=== PATIENT | female | born 1970 | race American Indian/Alaskan Native ===

== ENCOUNTER 2022-05-11 12:01 | Emergency (ER) | payer SELFPAY ==
--- NOTE | 2022-05-11 14:57 | XRay Report ---
XR shoulder 2+V RT INDICATION / CLINICAL INFORMATION: PAIN. COMPARISON: None available. FINDINGS: BONES/JOINT(S): No acute fracture or subluxation. 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 Mild generalized osteopen ia. No focal bone erosions or focal osteopenia to suggest inflammatory arthropathy. SOFT TISSUES: No significant abnormality. ADDITIONAL FINDINGS: None. Signer Name: Dawson Herrmann MD Signed: 05/11/2022 2:53 PM Workstation Name: [email or web address]
--- NOTE | 2022-05-11 14:58 | XRay Report ---
XR humerus 2+V RT INDICATION / CLINICAL INFORMATION: C/O PAIN S/P FALL. COMPARISON: None available. FINDINGS: BONES/JOINT(S): No acute fracture or subluxation. 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 Mild generalized osteopen ia. No focal bone erosions or focal osteopenia to suggest inflammatory arthropathy. SOFT TISSUES: No significant abnormality. ADDITIONAL FINDINGS: None. Signer Name: Dawson Herrmann MD Signed: 05/11/2022 2:53 PM Workstation Name: [employer]
[2022-05-11] MEDS ORDERED: HYDROcodone/ACETAMINOPHEN 5-325 MG TAB PO ONE (15:07)
[2022-05-11] MEDS ORDERED: IBUPROFEN 800 MG TAB PO ONE (15:07)
--- NOTE | 2022-05-11 15:08 | Emergency Department Report ---
ED Upper Extremity Inj HPI - General Chief Complaint: Extremity Injury, Upper Stated Complaint: RT ARM PAIN Time Seen by Provider: 05/11/22 14:23 Source: patient Mode of arrival: Ambulatory Limitations: No Limitations - History of Present Illness Initial Comments: 51 YO COMES TO ER WITH R SHOULDER PAIN WHICH STARATED 3 W AGO P FALLING FROM LADDER. 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 HAS NOT SEEN HER PCP. RADIAL/ULNAR PULSES INTACT RAPID CAP REFILL ON EXAM BP NOTED TO BE INC NO HX OF HTN PER PT NO CP NO SOB NO HEADACHE NO DIZZINESS PLAYING ON CELL PHONE DURING EXAM NEURO INTACT W/O DEFICIT Complaint: Injury to:: right -: Sudden, week(s) Other Extremity Injury: Shoulder: Right Handedness: right Place: home Improves With: immobilization Worsens With: movement of extremity Context: fall Associated Symptoms: denies other symptoms - Related Data Previous Rx's Medication Instructions Recorded Last Taken Type Cyclobenzaprine [Flexeril] 10 mg PO TID PRN #10 tablet 05/11/22 Unknown Rx Ibuprofen [Motrin] 800 mg PO Q8HR PRN #30 tablet 05/11/22 Unknown Rx Allergies Allergy/AdvReac Type Severity Reaction Status Date / Time No Known Allergies Allergy Unverified 05/11/22 14:16 ED Review of Systems ROS: Stated complaint: RT ARM PAIN Other details as noted in HPI Comment: All other systems reviewed and negative ED Past Medical Hx - Past Medical History Previous Medical History?: No - Surgical History Past Surgical History?: No - Family History Family history: no significant - Social History Smoking Status: Never Smoker Substance Use Type: None - Medications Home Medications: Home Medications Medication Instructions Recorded Confirmed Last Taken Type Cyclobenzaprine [Flexeril] 10 mg PO TID PRN #10 tablet 05/11/22 Unknown Rx Ibuprofen [Motrin] 800 mg PO Q8HR PRN #30 tablet 05/11/22 Unknown Rx ED Physical Exam - General Limitations: No Limitations General appearance: alert, in no apparent distress - Head Head exam: Present: atraumatic, normocephalic - Eye Eye exam: Present: normal appearance - ENT ENT exam: Present: mucous membranes moist - Neck Neck exam: Present: normal inspection - Respiratory Respiratory exam: Present: normal lung sounds bilaterally. Absent: respiratory distress - Cardiovascular Cardiovascular Exam: Present: regular rate, normal rhythm. Absent: systolic murmur, diastolic murmur, rubs, gallop - GI/Abdominal GI/Abdominal exam: Present: soft, normal bowel sounds - Extremities Exam Extremities exam: Present: normal inspection - Back Exam Back exam: Present: normal inspection - Neurological Exam Neurological exam: Present: alert, oriented X3 - Psychiatric Psychiatric exam: Present: normal affect, normal mood - Skin Skin exam: Present: warm, dry, intact, normal color. Absent: rash ED Course Vital Signs 05/11/22 14:16 Temperature 98.2 F Pulse Rate 91 H Respiratory 20 Rate Blood Pressure 202/128 [Right] O2 Sat by Pulse 95 Oximetry ED Medical Decision Making - Radiology Data Radiology results: report reviewed, image reviewed NAP - Medical Decision Making Vital Signs - 24 hr 05/11/22 14:16 Temperature 98.2 F Pulse Rate 91 H Respiratory 20 Rate Blood Pressure 202/128 [Right] O2 Sat by Pulse 95 Oximetry NO CP NO SOB NO HEADACHE DENIES HX HTN XRAY NOTED SLING MEDICATED FOR PAIN EDUCATED ON ORTHO FOLLOW UP INSTRUCTED TO MONITOR BP SHE AGAIN DENIES ANY HX BP DC HOME WITH DC PLAN OF CARE INCLUDING DIET, MEDS, ACTIVITY AND FOLLOW UP. SHE VERBALIZES UNDERSTANDING OF PLAN OF CARE. - Differential Diagnosis RO FX / DISLOCATION/ AC SEPAR Critical care attestation.: If time is entered above; I have spent that time in minutes in the direct care of this critically ill patient, excluding procedure time. ED Disposition Clinical Impression: Elevated blood pressure reading Shoulder pain Qualifiers: Chronicity: acute Laterality: right Qualified Code(s): M25.511 - Pain in right shoulder Fall Qualifiers: Encounter type: initial encounter Qualified Code(s): W19.XXXA - Unspecified fall, initial encounter Disposition: HOME / SELF CARE / HOMELESS Is pt being admited?: No Does the pt Need Aspirin: No Condition: Stable Instructions: Shoulder Pain Additional Instructions: SLING ICE TO SHOULDER MEDS ORDERED TODAY FOR PAIN FOLLOW UP WITH ORTHO ARIANNA REFERRAL BELOW MONITOR YOUR BP IT WAS ELEVATED TODAY THE PAIN CAN BE CAUSING IT TO BE HIGH FOLLOW UP WITH PCP IF PERSISTS REFERRAL BELOW DRINK A LOT OF WATER Prescriptions: Cyclobenzaprine [Flexeril] 10 mg PO TID PRN #10 tablet PRN Reason: Muscle Spasm Ibuprofen [Motrin] 800 mg PO Q8HR PRN #30 tablet PRN Reason: Pain, Moderate (4-6) Referrals: RHONDA SHAW MD [Staff Physician] - 3-5 Days BILL WALTER MD [Staff Physician] - 3-5 Days Forms: Work/School Release Form(ED) Time of Disposition: 15:08
[2022-05-11] MEDS ORDERED: CYCLOBENZAPRINE 10 MG TAB PO ONE (15:12)
[2022-05-11 16:35] VITALS: BP 181/90
== END 2022-05-11 16:35 | disposition home or self-care (01) ==
LOC: ED 12:01
DX: M25.511 Pain in right shoulder (principal); R03.0 Elevated blood-pressure reading, without diagnosis of hypertension; Z79.899 Other long term (current) drug therapy; W18.39XA Other fall on same level, initial encounter; Y93.89 Activity, other specified; Y92.89 Other specified places as the place of occurrence of the external cause; Y99.8 Other external cause status
CPT/HCPCS: 99283